=== PATIENT | female | born 1995 ===

== ENCOUNTER 2017-02-17 08:08 | Inpatient (IN) | payer OTHER ==
[~2017-02-17] VITALS: Ht 167.6 cm; Wt 72.6 kg
[2017-02-17] MEDS ORDERED: Lactated Ringer's 1,000 ML IV PRN (11:43)
[2017-02-17] MEDS ORDERED: Oxytocin 30 Units/500 mL LR 30 UNITS in IV Premix 1 EACH IV PRN ×2 (11:45→18:25)
[2017-02-17] MEDS ORDERED: Ondansetron 2 mg/mL 2 mL Inj IVPUSH PRN (11:45)
[2017-02-17] MEDS ORDERED: Carboprost 250 mCg/mL Inj IM PRN ×2 (11:45→18:25)
[2017-02-17] MEDS ORDERED: Oxytocin 10 Unit/mL Inj IM PRN ×2 (11:45→18:25)
[2017-02-17] MEDS ORDERED: fentaNYL-PF 50 mCg/mL 2 mL Inj IVPUSH PRN (11:45)
[2017-02-17] MEDS ORDERED: Hemorrhage Kit, Post Partum XX ONE ×2 (11:45→18:25)
[2017-02-17] MEDS ORDERED: Sodium Chloride LOK Flush 10 mL Syringe IVFLUSH PRN (11:45)
[2017-02-17] MEDS ORDERED: Methylergonovine 0.2 mg/mL Inj IM PRN ×2 (11:45→18:25)
[2017-02-17 12:19] LABS: Mean Corpuscular Hemoglobin 30.7 pg (27.0-35.0); Mean Corpuscular Volume 90.3 fL (81-100)
[2017-02-17] MEDS ORDERED: PREN1TAB87 PO (12:43)
[2017-02-17] MEDS ORDERED: FERR-83 PO (12:43)
[2017-02-17] MEDS ORDERED: EPHEDrine Sulfate 50 mg/mL Inj IVPUSH PRN (14:35)
[2017-02-17] MEDS ORDERED: Lactated Ringer's 500 ML IV ONE (14:35)
[2017-02-17] MEDS ORDERED: Lactated Ringer's 1,000 ML IV SCH (14:35)
[2017-02-17] MEDS ORDERED: Atropine 1 mg/10 mL (Code) Syringe IVPUSH PRN (14:35)
[2017-02-17] MEDS ORDERED: fentaNYL 2 mCg/mL-Bupiv 0.125% 100 ML EPIDURAL SCH (14:35)
--- NOTE | 2017-02-17 14:41 | PCM.HPANE ---
Patient Data Surgeon Admitting Provider:Conor Rushing MD Attending Provider:Conor Rushing MD Primary Care Physician:Conor Rushing MD Other Provider:Noam Burroughs Anesthesia Reason for Visit Term Early Labor TERM EARLY LABOR Ht/WT & BMI Body Mass Index Allergies Coded Allergies: ibuprofen (Unverified Allergy, Unknown, 02/17/17) Past Anesthesia History Anesthesia History: Denies:: Abnormal Airway, Anesthesia Reactions, Difficult Intubation, Fam Anesthesia Reaction, Fam Malignant Hypertherm, Malignant Hyperthermia Diabetes History Hx Diabetes?: No MRSA MRSA: No Medications Hypertension Medication: No Home Meds Incl Beta Renata: No Reported Medications Ferrous Sulfate 325 Mg [id number] Mg PO DAILY 30 Days Ref 0 02/17/17 Vit W-Ca,Fe,FA(<1 mg) ( Vitamins)1 Each Tablet1 Each PO DAILY 02/17/17 History History of ENT Problems?: No HEENT History: Denies:: Abnormal Airway Cataracts Difficult Intubation Dysphagia Glaucoma Hearing Problem Sinus Problem TMJ Denture Type: None Teeth Condition: Within Normal Limits Hx of Heart Problems?: No Cardiovascular History: Denies:: AICD Abdominal Aortic Aneurism Atrial Fibrillation Cardiac Surgery Chest Pain Congestive Heart Failure Coronary Artery Disease Edema Heart Murmur Hypertension Irregular Heartbeat Pacemaker Peripheral Vascular Rheumatic Fever Thrombophlebitis Valvular Heart Disease Hx of Respiratory Problem?: No Respiratory History: Denies:: Asthma COPD Chest Surgery Cough Dyspnea Emphysema Hemoptysis Oxygen Administration Pneumonia Pulmonary Embolism Tuberculosis Use of C-PAP Machine Use of Inhalers / NEBS Hx Neurologic Problems?: No Neurological History: Denies:: Alzheimer's Disease CVA Dementia Dizziness Headaches Multiple Sclerosis Parkinson's Disease Peripheral Neuropathy Seizures TIA Hx of GI Problems?: No Hx of Problems?: No Hx Musculoskeletal Problems?: No Hx Surgeries?: No Smoking Status: Never Smoker Stop/Bang Risk Assessment Category Category 1A: Patient has history of documented sleep apnea, and HAS NOT received any narcotic, sedative or anesthesia administration during this stay. Category 1B: Patient has history of documented sleep apnea, and HAS received any narcotic , sedative or anesthesia administration during this stay Category 2: Patient has SUSPECTED Obstructive Sleep Apnea, and HAS received any narcotic , sedative or anesthesia administration during this stay. Category 3: Patient has SUSPECTED Obstructive Sleep Apnea and HAS NOT received narcotic, sedative or anesthesia administration during this stay. Category 4: Outpatient in Procedural Areas with known sleep apnea or who screen positive for High Risk via the STOP/BANG questionnaire. Exam Exam General Appearance: Alert, Oriented X3, Cooperative, No Acute Distress HEENT/AIRWAY: MP 2 Lungs: Clear to Auscultation, Normal Air Movement Heart: Exam Unremarkable, Regular Rate/Rhythm, No Murmurs/Rubs/Gallops Meds/Labs/Diagnostics Labs Test 02/17/17 11:45 White Blood Count 14.4th/mm3 (3.8-10.1) Red Blood Count 4.11mil/mm3 (3.90-5.20) Hemoglobin 12.6g/dL (12.0-15.6) Hematocrit 37.1% (35.0-46.0) Mean Corpuscular Volume 90.3fL (81-100) Mean Corpuscular Hemoglobin 30.7pg (27.0-35.0) Mean Corpuscular Hemoglobin Concent 34.0% (32.0-37.0) Red Cell Distribution Width 12.7% (12.3-15.4) Platelet Count 156bil/L (150-400) Plan Impression Patient chart reviewed, patient interviewed and anesthestic plan with risks, benefits, and alternatives discussed, and informed consent obtained. NPO per Anesth. Guidelines: Yes ASA Physical Status: ASA1 Normal Healthy Anesthetic Plan: Epidural Bene/Risks/Altern/Consents: Yes HP Complete Prior to Induction: Yes Mario Hoffmann MD February 17, 2017 14:41
[2017-02-17] MEDS: Lactated Ringer's 1,000 ML IV SCH (18:24)
[2017-02-17] MEDS ORDERED: LANOlin HPA 7 Gm Ointment TOPICAL PRN (18:25)
[2017-02-17] MEDS ORDERED: Benzocaine (Dermoplast) 20% 60 Gm Spray TOPICAL PRN (18:25)
[2017-02-17] MEDS ORDERED: HYDROcodone-APAP 5-325 mg Tablet PO PRN (18:25)
--- NOTE | 2017-02-17 19:06 | HP ---
[address] [address] HISTORY AND PHYSICAL PATIENT: FRANDY HICKS : 1995 MR#: [id number] ADMIT: 02/17/2017 JOB ID: [id number] CHIEF COMPLAINT: Increasing contractions at term. HISTORY OF PRESENT ILLNESS: A 21-year-old, 2, para 0, with a due date of February 19, 2017, presents at 39+ weeks with increasing contractions since around 3 o'clock this morning. When I arrive, she is complete and pushing with an epidural. LABS: Blood type O positive. Rubella immune. Serology nonreactive. Hepatitis B surface antigen and HIV test negative at the onset of . She is varicella immune. Hematocrit in August of last year was 37.1, and antibody screen was negative. Gonorrhea and chlamydial cultures were negative. A 28 week glucose tolerance test was 125. Her quad screen was negative. Her urine at the onset of showed mixed buzz. She is GBS negative screened February 01, 2017. PAST GYNECOLOGIC HISTORY: 2, para 0, SAB 1 in 2016, first trimester. SOCIAL HISTORY: She is , a nonsmoker and per previous notes does not drink alcohol or use recreational drugs. CURRENT MEDICATIONS: vitamins 1 tablet daily. ALLERGIES: None known. She initially had a chart listing of ibuprofen but specifically notes that she has tolerated ibuprofen on multiple times as an adult; may have had a reaction as a child. HEALTH CARE MAINTENANCE: She had a TDAP in January of this year. PHYSICAL EXAMINATION: Please see nursing notes for vital signs. She is an actively laboring young woman pushing with the head visible with pushing but not staying out between contractions. head at +2 station, cervix 100% effaced, 10 cm dilated. heart tracing shows a reactive/category I tracing for most of today; baseline is in the 130s. There are occasional variables noted. ASSESSMENT: 1. Gravid 39+ weeks. 2. GBS negative. 3. Rupture of membranes with clear fluid earlier today. 4. Epidural anesthesia. 5. Blood type O positive. PLAN: The patient went on to deliver shortly afterward, please see delivery note. MTDD
--- NOTE | 2017-02-17 19:10 | OP ---
[address] [address] OPERATIVE REPORT PATIENT: FRANDY HICKS : 1995 MR#: [id number] ADMIT: 02/17/2017 JOB ID: [id number] DELIVERY NOTE: DATE OF DELIVERY: 02/17/2017 Conor Rushing MD DELIVERY POSITION: KARLA. DELIVERY WEIGHT: 7 pounds, 8.4 ounces (3414 grams), female. APGARS: 6 and 9. UMBILICAL CORD: Three-vessel cord, slightly thin but otherwise normal appearance. It does have a side placental insertion. PLACENTA: No evidence of retained fragments Side cord insertion as noted above. Small-normal size placenta. LACERATIONS: Very small left upper labial, right lower labial, second degree perineal. EBL: 300 cc. ANESTHESIA: Epidural, along with lidocaine for repair. DELIVERY NOTE IN DETAIL: The patient was found to be complete with an increasing urge to push. She pushed for little under half an hour effectively bringing the head down. Head delivered in KARLA position. There was no nuchal cord identified and shoulders delivered quite easily there afterwards. Infant was handed off to mother and Nursing for stimulation and cord clamped after a 2 minute delay. Cord blood collected and sent, and placenta delivered with gentle traction on the cord after several more minutes. There were a few gushes which slowed with IV oxytocin and fundal massage. Perineum was inspected. Showed a small/shallow left upper labial, larger right lower labial and a second-degree tear perineal tear. Repair was completed using 4-0 Vicryl on the labial lacerations, 2-0 Vicryl. After repair, a vaginal-rectal exam was performed and revealed no palpable through and through tears. There was an intact anal sphincter palpated. Sponge and needle counts are correct after delivery. [facility]
[2017-02-17] MEDS: Witch Hazel-Glycerin Pads TOPICAL PRN (19:42)
[2017-02-18] MEDS: Lactated Ringer's 1,000 ML IV SCH (02:24)
--- NOTE | 2017-02-18 07:22 | PCM.ANEP1 ---
Post Anesthesia Phase 1 PACU Phase 1 Assessment Anesthetic Administered: Epidural Level of Alertness: Awake, talking ENG's with Equal Strength: Yes Pain: No Pain Scale Score: 1 Nausea or Vomiting: No Cardiovascular Function and Hy: No Oxygen Delivery: Room Air Lungs: Clear to Auscultation, Normal Air Movement Complications: No Patient Instructions Provided: Yes Mario Hoffmann MD February 18, 2017 07:22
[2017-02-18 07:47] LABS: Mean Corpuscular Hemoglobin 31.1 pg (27.0-35.0); Mean Corpuscular Volume 92.3 fL (81-100)
--- NOTE | 2017-02-18 11:49 | PCM.DIOB ---
Obstetrical Disch Instruction Date of Service: February 18, 2017 Dates of Hospitalization Date of Hospital Admission February 17, 2017 at 11:40 Providers Admitting Physician: Conor Rushing MD Primary Care Physician: Conor Rushing MD Attending Physician: Conor Rushing MD Discharge Diagnosis Problems: (1) Encounter for full-term uncomplicated delivery Status: Acute ICD Code: O80 Diet Discharge Diet: No restrictions Activity Discharge Activity-General: Pelvic Rest for 6 weeks Dressing and Incisional Care Hygiene: February show Follow Up Plan Follow-up Provider (F9): Conor Rushing MD Follow-up appointment: Weeks (6) Call your provider for: Fever or Chills, Shortness of breath, Heavy vaginal bleeding, Excessive constipation, Red painful breasts Conor Rushing MD February 18, 2017 11:49
[2017-02-18] MEDS ORDERED: IBUP800T28 PO (11:52)
[2017-02-18] MEDS ORDERED: DOCU-41 PO (11:52)
--- NOTE | 2017-02-18 14:09 | DIS ---
[address] [address] DISCHARGE SUMMARY PATIENT: FRANDY HICKS : 1995 MR#: [id number] ADMIT: 02/17/2017 JOB ID: [id number] DIS: DISCHARGE DIAGNOSES: 1. Spontaneous vaginal delivery at term. 2. Second-degree perineal tear along with labial tears. 3. Blood type O-positive. DISCHARGE MEDICATIONS: 1. vitamins 1 tablet daily. 2. Ibuprofen 800 mg q.6 h. p.r.n. pain. 3. Docusate sodium 100 mg p.o. b.i.d. p.r.n. constipation. DISCHARGE INSTRUCTIONS: 1. Follow up with Dr. Rushing at six weeks. 2. Pelvic rest for six weeks due to second-degree perineal repair. 3. Call for increased bleeding, fevers, excessive breast pain, excessive constipation, etc. 4. Breast feed and activity ad josephine. 5. Diet ad josephine. HOSPITAL COURSE: The patient is a now 21-year-old, 2, para 1, SAB 1, who presented at 39 and 5/7 weeks in active labor. She received an epidural and went on to have an uncomplicated vaginal delivery of a 2-fmppl-4-ounce female in KARLA position. She sustained labial and second-degree perineal lacerations which were repaired. she is caring for her well. Her pain is well controlled with ibuprofen alone. She reports her lochia is slowing. She prefers discharge today and has excellent social support. Her hematocrit dropped from an admit value of 37.1 to 33.5, hemoglobin 12.6 to 11.3; neither felt low enough to require outpatient iron supplementation. The patient will follow up at six weeks, sooner if problems. JACQUELYN
[2017-02-18 16:36] VITALS: BP 108/72; PULSE 84; RESP 16
[2017-02-18] MEDS: Witch Hazel-Glycerin Pads TOPICAL PRN (18:21)
== END 2017-02-18 19:33 | disposition home or self-care (01) | DRG 775 ==
LOC: FBCO 08:08 → FBC 11:40
PROVIDERS: ADMIT Family Medicine; ATTEND Family Medicine
PROC: 10E0XZZ Delivery of Products of Conception, External Approach (ICD-10-PCS; principal; 2017-02-17)
PROC: 0KQM0ZZ Repair Perineum Muscle, Open Approach (ICD-10-PCS; 2017-02-17)
DX: O70.1 Second degree perineal laceration during delivery (principal); Z37.0 Single live birth; Z3A.39 39 weeks gestation of pregnancy